=== PATIENT | male | born 1945 | race Caucasian/White ===

== ENCOUNTER 2023-11-25 14:50 | Emergency (ER) | payer MEDICARE ==
[~2023-11-25] VITALS: Ht 162.6 cm; Wt 54.4 kg
[2023-11-25 15:01] VITALS: BP_SYST 118; PULSE 89; RESP 18; TEMP 98.3; O2SAT 98
[2023-11-25] MEDS ORDERED: GASTROGRAFIN 120 ML ONE (16:09)
[2023-11-25 18:47] VITALS: BP_SYST 125; PULSE 60; RESP 16; TEMP 97; O2SAT 98
== END 2023-11-25 18:45 | disposition home or self-care (01) ==
LOC: SED 14:50
DX: K94.23 Gastrostomy malfunction (principal); I10 Essential (primary) hypertension; Z88.5 Allergy status to narcotic agent
CPT/HCPCS: 99284; 43762; 74240; Q9963